=== PATIENT | male | born 1945 | race Caucasian/White ===

== ENCOUNTER → 2017-02-15 | Outpatient (CLI) | payer MEDICARE, BC ==
[~2017-02-15] MED LIST: BARIUM SULFATE 135 ML (E-Z HD) PO ONE
--- NOTE | 2017-02-16 10:39 | RADRPT ---
PROCEDURE: Video-fluoroscopy swallowing study. CLINICAL INDICATION: Dysphagia. TECHNIQUE: Fluoroscopic guided video swallowing study was done in conjunction with the speech ther apist. The study was confined to the oral, pharyngeal, and cervical phases of the swallowing mechani sm. 1.8 minutes of fluoroscopy time was used. 13 series of images were obtained. COMPARISON: No prior study is available for comparison. FINDINGS: There is silent aspiration during swallowing. IMPRESSION: 1. Abnormal study with silent aspiration during swallowing. 2. Please refer to the speech therapist's recommendations for future feedings. RPTAT: QQ .Jaquan Blankenship MD, MD Date Time Electronically viewed and signed by .Jaquan Blankenship MD, on 02/16/2017 10:38 .R/
== END | disposition home or self-care (01) ==
LOC: RAD 11:25
PROVIDERS: ATTEND Internal Medicine
DX: C15.9 Malignant neoplasm of esophagus, unspecified (principal); R13.10 Dysphagia, unspecified
CPT/HCPCS: 74230; 92611; G8996; G8997; G8998